=== PATIENT | male | born 1980 | race Caucasian/White ===

== ENCOUNTER 2023-12-22 16:46 | Inpatient (IN) | payer MEDICAID ==
[~2023-12-22] VITALS: Ht 157.5 cm; Wt 66.3 kg
[2023-12-22] MEDS: SODIUM CHLORIDE 0.9% 1,000 ML IV ONE (17:39)
[2023-12-22] MEDS: DIAZEPAM 5 MG/ML 2ML SYR IV ONE (17:39)
[2023-12-22 18:16] LABS: BASOPHILS % 0.3 % (0.0-2.0); EOSINOPHILS % 0.1 % (0.0-5.0); HEMATOCRIT. 39.2 % (42.0-52.0); HEMOGLOBIN. 13.2 g/dL (14.0-18.0); LYMPHOCYTES % 18.6 % (20.0-50.0); MEAN CORPUSCULAR HEMOGLOBIN 29.7 pg (28.0-32.0); MEAN CORPUSCULAR HGB CONC 33.7 g/dL (31.0-37.0); MEAN CORPUSCULAR VOLUME 88.3 fL (80.0-94.0); MEAN PLATELET VOLUME 9.5 fl (7.4-10.4); MONOCYTES % 4.8 % (2.0-8.0); NEUTROPHILS % 76.2 % (40.0-76.0); PLATELET 94 x1000/uL (130-400); RED BLOOD CELL COUNT 4.44 mill/uL (4.7-6.1); RED CELL DISTRIBUTION WIDTH 13.7 % (11.6-14.6); WHITE BLOOD COUNT 6.9 x1000/uL (4.5-11.0)
[2023-12-22 18:23] LABS: CHLORIDE 106 mEq/L (98-107); POTASSIUM 3.5 mEq/L (3.5-5.1); SODIUM 143 mEq/L (136-145)
[2023-12-22 18:24] LABS: CALCIUM 8.4 mg/dL (8.7-10.4); CARBON DIOXIDE 26 mEq/L (21-32)
[2023-12-22 18:29] LABS: CREATININE 0.8 mg/dL (0.6-1.3); GLUCOSE 130 mg/dL (70-105); UREA NITROGEN BLOOD 7 mg/dL (9-23)
[2023-12-22 18:31] LABS: ALANINE AMINOTRANSFERASE 305 IU/L (10-49); ALBUMIN 3.9 g/dL (3.2-4.8); ASPARTATE AMINOTRANSFERASE 409 IU/L (<34); BILIRUBIN DIRECT 0.2 mg/dL (<=3.0); BILIRUBIN TOTAL 0.6 mg/dL (0.1-1.0); PROTEIN TOTAL 6.4 g/dL (6.0-8.3)
[2023-12-22 18:44] LABS: PROTHROMBIN TIME 10.8 sec (9.6-11.0)
[2023-12-22 19:41] LABS: TROPONIN I HIGH SENSITIVITY < 4 ng/L (3.0-53)
[2023-12-22] MEDS: ACETAMINOPHEN 325MG TABLET PO ONE (20:07)
[2023-12-22] MEDS ORDERED: IOHEXOL-300 100 ML BOTTLE ONE (23:16)
[2023-12-23] VITALS: BP 147/89; PULSE 83; RESP 20; TEMP 97.7
[2023-12-23] MEDS ORDERED: ACETAMINOPHEN 325MG TABLET PO PRN ×2 (10:45)
[2023-12-23] MEDS ORDERED: ONDANSETRON HCL 4MG/2ML INJ IV PRN (10:45)
[2023-12-23] MEDS ORDERED: CLONIDINE 0.1MG TABLET PO PRN (10:45)
[2023-12-23] MEDS ORDERED: GUAIFENESIN 200MG/10ML SUGAR FREE UDC PO PRN (10:45)
[2023-12-23] MEDS ORDERED: DOCUSATE SODIUM 100MG CAPSULE PO PRN (10:45)
[2023-12-23] MEDS ORDERED: IPRATROPIUM/ALBUTEROL 0.5-3(2.5)MG/3ML NEB HHN PRN (10:45)
[2023-12-23] MEDS ORDERED: MAGNESIUM/ALUMINUM HYDROXIDE/SIMETHICONE 30ML UDC PO PRN (10:45)
[2023-12-23] MEDS ORDERED: LORAZEPAM 2MG/ML INJ IV PRN ×2 (10:45→11:30)
[2023-12-23 12:00] VITALS: BP 147/84; PULSE 82; RESP 17; TEMP 97.5
[2023-12-23] MEDS: MVI, ADULT NO.1 10 ML, FOLIC ACID 1 MG, THIAMINE HCL 100 MG in SODIUM CHLORIDE 0.9% 1,0... IV ONE (12:00)
[2023-12-23 14:40] LABS: T4 FREE 0.95 ng/dL (0.89-1.76); THYROID STIMULATING HORMONE 0.88 uIU/mL (0.55-4.78)
[2023-12-23 16:00] VITALS: BP 158/91; PULSE 78; RESP 18; TEMP 98.1
[2023-12-23 20:00] VITALS: BP 149/96; PULSE 81; RESP 16; TEMP 97.4
[2023-12-24] VITALS: BP 129/84; PULSE 78; RESP 18; TEMP 97.8
[2023-12-24 04:00] VITALS: BP 138/88; PULSE 63; RESP 20; TEMP 99.1
[2023-12-24 07:22] LABS: BASOPHILS % 0.4 % (0.0-2.0); EOSINOPHILS % 1.2 % (0.0-5.0); HEMATOCRIT. 41.4 % (42.0-52.0); HEMOGLOBIN. 13.5 g/dL (14.0-18.0); LYMPHOCYTES % 26.9 % (20.0-50.0); MEAN CORPUSCULAR HEMOGLOBIN 28.7 pg (28.0-32.0); MEAN CORPUSCULAR HGB CONC 32.5 g/dL (31.0-37.0); MEAN CORPUSCULAR VOLUME 88.1 fL (80.0-94.0); MEAN PLATELET VOLUME 10.1 fl (7.4-10.4); MONOCYTES % 7.5 % (2.0-8.0); PLATELET 76 x1000/uL (130-400); RED CELL DISTRIBUTION WIDTH 13.8 % (11.6-14.6); WHITE BLOOD COUNT 3.8 x1000/uL (4.5-11.0)
[2023-12-24 07:33] LABS: CHLORIDE 103 mEq/L (98-107); POTASSIUM 3.3 mEq/L (3.5-5.1); SODIUM 137 mEq/L (136-145)
[2023-12-24 07:36] LABS: CALCIUM 9.6 mg/dL (8.7-10.4); CARBON DIOXIDE 26 mEq/L (21-32)
[2023-12-24 07:41] LABS: CREATININE 0.7 mg/dL (0.6-1.3); GLUCOSE 182 mg/dL (70-105); UREA NITROGEN BLOOD 5 mg/dL (9-23)
[2023-12-24 07:42] LABS: ALANINE AMINOTRANSFERASE 431 IU/L (10-49)
[2023-12-24 07:43] LABS: ALBUMIN 4.2 g/dL (3.2-4.8); ASPARTATE AMINOTRANSFERASE 798 IU/L (<34); BILIRUBIN DIRECT 0.5 mg/dL (<=3.0); BILIRUBIN TOTAL 1.3 mg/dL (0.1-1.0); PROTEIN TOTAL 6.9 g/dL (6.0-8.3)
[2023-12-24 08:00] VITALS: BP 138/90; PULSE 74; RESP 20; TEMP 97.3
[2023-12-24] MEDS: CHLORDIAZEPOXIDE 25MG CAPSULE PO PRN (08:41)
[2023-12-24] MEDS: MULTIVITAMINS,THER W-MINERALS TABLET PO SCH (08:41)
[2023-12-24] MEDS: FOLIC ACID 1MG TABLET PO SCH (08:41)
[2023-12-24] MEDS: THIAMINE HCL 100MG TABLET PO SCH (08:42)
[2023-12-24] MEDS: KCL 20MEQ/100ML PREMIX 100 ML IV NR (10:00)
[2023-12-24 11:15] LABS: PHOSPHORUS 3.3 mg/dL (2.5-4.9)
[2023-12-24 12:00] VITALS: BP 136/69; PULSE 72; RESP 20; TEMP 97.2
[2023-12-24 13:00] LABS: HEPATITIS B SURFACE ANTIGEN NEGATIVE (Negative)
[2023-12-24 13:21] LABS: HEPATITIS A AB IGM NEGATIVE (Negative)
[2023-12-24 13:22] LABS: HEPATITIS B CORE AB IGM NEGATIVE (Negative); HEPATITIS C AB NON REACTIVE (Neg) (Negative)
[2023-12-24] MEDS ORDERED: MAGNESIUM 2 G PREMIX 50 ML IV NR (14:30)
[2023-12-24] MEDS ORDERED: NALOXONE HCL 0.4MG/ML VIAL IV PRN (15:00)
[2023-12-24] MEDS: TRAMADOL 50MG TABLET PO PRN (15:28)
[2023-12-24 15:30] VITALS: BP 127/90; PULSE 83
[2023-12-24] MEDS: PANTOPRAZOLE SODIUM 40 MG/VIAL IV SCH (19:08)
[2023-12-24 20:00] VITALS: BP 140/76; PULSE 82; RESP 19; TEMP 97.6
[2023-12-25] VITALS: BP 129/71; PULSE 73; RESP 17; TEMP 98.1
[2023-12-25 04:00] VITALS: BP 140/90; PULSE 89; RESP 20; TEMP 97.5
[2023-12-25 06:24] LABS: BASOPHILS % 0.5 % (0.0-2.0); EOSINOPHILS % 1.9 % (0.0-5.0); HEMATOCRIT. 40.2 % (42.0-52.0); HEMOGLOBIN. 13.6 g/dL (14.0-18.0); MEAN CORPUSCULAR HEMOGLOBIN 29.8 pg (28.0-32.0); MEAN CORPUSCULAR HGB CONC 33.8 g/dL (31.0-37.0); MEAN CORPUSCULAR VOLUME 88.3 fL (80.0-94.0); MEAN PLATELET VOLUME 10.1 fl (7.4-10.4); NEUTROPHILS % 54.6 % (40.0-76.0); PLATELET 73 x1000/uL (130-400); RED BLOOD CELL COUNT 4.55 mill/uL (4.7-6.1); RED CELL DISTRIBUTION WIDTH 13.7 % (11.6-14.6); WHITE BLOOD COUNT 4.1 x1000/uL (4.5-11.0)
[2023-12-25 06:28] LABS: CARBON DIOXIDE 27 mEq/L (21-32); CHLORIDE 102 mEq/L (98-107); POTASSIUM 3.7 mEq/L (3.5-5.1); SODIUM 136 mEq/L (136-145)
[2023-12-25 06:29] LABS: CALCIUM 9.6 mg/dL (8.7-10.4)
[2023-12-25 06:33] LABS: CREATININE 0.7 mg/dL (0.6-1.3); GLUCOSE 141 mg/dL (70-105)
[2023-12-25 06:34] LABS: UREA NITROGEN BLOOD 7 mg/dL (9-23)
[2023-12-25 06:35] LABS: ALANINE AMINOTRANSFERASE 771 IU/L (10-49)
[2023-12-25 06:36] LABS: ALBUMIN 4.2 g/dL (3.2-4.8); ASPARTATE AMINOTRANSFERASE > 1000 IU/L (<34); BILIRUBIN TOTAL 1.4 mg/dL (0.1-1.0); PROTEIN TOTAL 6.8 g/dL (6.0-8.3)
[2023-12-25 08:00] VITALS: BP 135/103; PULSE 93; RESP 18; TEMP 96.6
[2023-12-25 12:00] VITALS: BP 120/94; PULSE 99; RESP 18; TEMP 97.7
[2023-12-25] MEDS ORDERED: FOLI-43 PO (12:17)
[2023-12-25] MEDS ORDERED: PROT20 PO (12:17)
[2023-12-25] MEDS ORDERED: THIA100T72 PO (12:17)
[2023-12-25] MEDS ORDERED: TRAM50TA3 PO (12:17)
[2023-12-25 12:32] LABS: AMMONIA 40 uMol/L (<32)
[2023-12-25 13:01] VITALS: BP 135/63; PULSE 93; TEMP 97.9; O2SAT 96
[2023-12-25] MEDS ORDERED: LACTULOSE 20G/30ML UDC PO NR (17:15)
== END 2023-12-25 15:50 | disposition home or self-care (01) | DRG 52 ==
LOC: ER 16:46 → 6EST 20:10 → EDBEDREQ 20:15 → EDBEDREQSVC 20:15 → EDBEDREQTM 20:15
PROVIDERS: ADMIT Hospitalist; ATTEND Hospitalist
DX: G92.8 Other toxic encephalopathy (principal); D69.6 Thrombocytopenia, unspecified; K70.0 Alcoholic fatty liver; K70.9 Alcoholic liver disease, unspecified; D64.9 Anemia, unspecified; K80.20 Calculus of gallbladder without cholecystitis without obstruction; F10.239 Alcohol dependence with withdrawal, unspecified; K82.8 Other specified diseases of gallbladder; N28.1 Cyst of kidney, acquired; F10.229 Alcohol dependence with intoxication, unspecified; N43.3 Hydrocele, unspecified; F41.9 Anxiety disorder, unspecified; G89.29 Other chronic pain; M54.50 Low back pain, unspecified
CPT/HCPCS: 36415; 71045; 74177; 76700; 76870; 80048; 80053; 80061; 80076; 80320; 82140; 82977; 83036; 83735; 84100; 84439; 84443; 84484; 85025; 86705; 86709; 87340; 93005; 93976; 99285; J2470; J3411; J3475; J3480; J3490; J7030; Q9967; G0480